=== PATIENT | male | born 1975 | race Caucasian/White ===

== ENCOUNTER 2017-09-08 12:59 | Emergency (ER) | payer MEDICAID, OTHER ==
[2017-09-08] MEDS ORDERED: ACETAMINOPHEN 325 MG TAB PO ONE (13:11)
--- NOTE | 2017-09-08 13:21 | Emergency Department Record ---
History of Present Illness - General Chief Complaint: Cough Stated Complaint: CHEST COLD AND PRODUCTIVE COUGH Time Seen by Provider: 09/08/17 13:07 Source: Patient Mode of Arrival: Ambulatory Limitations: No limitations - History of Present Illness Initial Comments: The patient is here due to a 7 day hx of cough and congestion for 7 days. He now has colored sputum for a few days and is intermittently coughing up flecks of blood in it. The patient does complain of mild fever and chills but denies any CP or SOB. MD Complaint: Cough, Fever, Nasal congestion, Rhinorrhea Onset/Timin -: Days(s) Severity: Moderate Severity scale (1-10): 5 - Related Data Home Medications Medication Instructions Recorded Confirmed Last Taken Fenofibrate Nanocrystallized 160 mg PO DAILY 09/08/17 09/08/17 1 Day Ago [Triglide] ~09/07/17 Multivitamin [Multiple Vitamins] 1 each PO DAILY 09/08/17 09/08/17 1 Day Ago ~09/07/17 Venlafaxine HCl [Effexor Xr] 75 mg PO DAILY 09/08/17 09/08/17 1 Day Ago ~09/07/17 Previous Rx's Medication Instructions Recorded Albuterol Sulfate [Proair Hfa] 2 puff IH QID PRN #1 inhaler 09/08/17 Azithromycin [Zithromax] 250 mg PO ASDIR #4 tab 09/08/17 Allergies Allergy/AdvReac Type Severity Reaction Status Date / Time Fish Containing Products Allergy DIFFICULTY Verified 09/08/17 13:09 SWALLOWING Travel Screening - Travel/Exposure Within Last 30 Days Have you traveled within the last 30 days?: No - Travel/Exposure Within Last Year Have you traveled outside the [place] in the last year?: No - Additonal Travel Details Have you been exposed to anyone with a communicable illness?: No - Travel Symptoms Symptom Screening: None Review of Systems Constitutional: Reports: Chills, Fever, Malaise Eyes: Denies: Eye discharge ENT: Reports: Congestion Respiratory: Reports: Cough. Denies: Dyspnea Past Medical History - SOCIAL HISTORY Smoking Status: Former smoker Alcohol Use: Occasional Drug Use: None - RESPIRATORY Hx Respiratory Disorders: Yes Comment:: allergies - CARDIOVASCULAR Hx Cardio Disorders: No - NEURO Hx Neuro Disorders: No - GI Hx GI Disorders: Yes Hx Ulcer: Yes - Hx Genitourinary Disorders: No - ENDOCRINE Hx Endocrine Disorders: No - MUSCULOSKELETAL Hx Musculoskeletal Disorders: No - PSYCH Hx Psych Problems: No - HEMATOLOGY/ONCOLOGY Hx Hematology/Oncology Disorders: No Family Medical History Any Significant Family History?: Yes Physical Exam - General General Appearance: Alert, Oriented x3, Cooperative, No acute distress - Head Head exam: Atraumatic, Normocephalic, Normal inspection - Eye Eye exam: Normal appearance, PERRL - ENT Throat exam: Normal inspection. negative: Tonsillar erythema, Tonsillar exudate - Neck Neck exam: Normal inspection, Full ROM. negative: Tenderness - Respiratory Respiratory exam: Normal lung sounds bilaterally. negative: Respiratory distress, Rhonchi, Stridor, Wheezes - Cardiovascular Cardiovascular Exam: Regular rate, Normal rhythm, Normal heart sounds - GI/Abdominal GI/Abdominal exam: Soft, Normal bowel sounds. negative: Tenderness - Extremities Extremities exam: Normal inspection, Full ROM, Normal capillary refill. negative: Tenderness - Neurological Neurological exam: Alert. negative: Motor sensory deficit Course Vital Signs 09/08/17 13:02 Temperature 99.9 F H Pulse Rate 102 H Respiratory 18 Rate Blood Pressure 147/88 Pulse Ox 94 L - Reevaluation(s) Reevaluation #1: The patient is doing well and denies any SOB or CP or fever. On exam his lungs are clear with no rhonchi or wheezing. I did discuss the xray results with the patient and the need for oral Abx's. He is to see his PCP next week for recheck. 09/08/17 14:36 Medical Decision Making - Data Complexity MDM Data: X-Ray Ordered and/or Reviewed - Radiology Data Radiology results: Report reviewed (CXR: Bilateral mild infiltrates in the lower lobes. Poss pneumonia.) Disposition Disposition: Discharge Clinical Impression: Pneumonia Qualifiers: Pneumonia type: due to unspecified organism Laterality: bilateral Lung location : unspecified part of lung Qualified Code(s): J18.9 - Pneumonia, unspecified organism Disposition: Home, Self-Care Condition: (2) Stable Instructions: Community Acquired Pneumonia (ED) Additional Instructions: Please use Tylenol or Ibuprofen for fever. Continue the Zithromax as directed and use your ProAir as directed. Please see your PCP next week for recheck and return to the ER for any worsening cough, any fever, or any trouble breathing. Prescriptions: Albuterol Sulfate [Proair Hfa] 2 puff IH QID PRN #1 inhaler PRN Reason: Cough And Difficulty Breathing Azithromycin [Zithromax] 250 mg PO ASDIR #4 tab Forms: Patient Portal Access Time of Disposition: 14:40 Quality - Quality Measures Quality Measures: N/A - Blood Pressure Screening View Details: Yes Does Patient Have Any of the Following: No Blood Pressure Classification: Pre-Hypertensive BP Reading Systolic Measurement: 147 Diastolic Measurement: 88 Screening for High Blood Pressure: < Pre-Hypertensive BP, F/U Documented > [ G8950] Pre-Hypertensive Follow-up Interventions: Referral to alternative/primary care provider.
[2017-09-08] MEDS ORDERED: IPRATROPIUM/ALBUTEROL (0.5MG/3MG) NEB INH ONE (13:47)
[2017-09-08] MEDS ORDERED: AZITHROMYCIN 500 MG TABLET PO ONE (13:48)
--- NOTE | 2017-09-09 18:14 | RADIOLOGY REPORT ---
EXAM: CHEST 2 VIEWS HISTORY: COUGHING UP PHLEGM. CONGESTION FOR FOUR TO FIVE DAYS. TECHNIQUE: Two views. COMPARISON: None. FINDINGS: Infiltrates are seen in the right middle lobe and lingula. The heart is not enlarged and there is no mediastinal mass. No vascular congestion. IMPRESSION: INFILTRATES IDENTIFIED IN THE LOWER LUNGS BILATERALLY. JOB NUMBER: [id number] MTDD
== END 2017-09-08 14:46 | disposition home or self-care (01) ==
LOC: ER 12:59
DX: J18.9 Pneumonia, unspecified organism (principal); Z87.891 Personal history of nicotine dependence
CPT/HCPCS: 71020; 94640; 99283; 99284

== ENCOUNTER 2017-09-30 18:31 | Emergency (ER) | payer MEDICAID ==
[2017-09-30] MEDS ORDERED: METHYLPREDNISOLONE PF 125MG/VIAL IM ONE (20:25)
--- NOTE | 2017-09-30 20:27 | Emergency Department Record ---
History of Present Illness - General Chief Complaint: Cough Stated Complaint: SINUS CONGESTION,COUGH Time Seen by Provider: 09/30/17 20:23 Source: Patient Mode of Arrival: Ambulatory - History of Present Illness Initial Comments: Coughing spasms, green nasal drainage, and sore throat for the past 3-4 days. No known fevers. Had pneumonia in the past, several years ago. No asthma, not a smoker. Son was sick with a viral infection this past week. MD Complaint: Cough, Nasal congestion Onset/Timin -: Days(s) Severity: Mild Severity scale (1-10): 5 Consistency: Constant - Related Data Previous Rx's Medication Instructions Recorded Albuterol Sulfate [Proair Hfa] 2 puff IH QID PRN #1 inhaler 09/08/17 Allergies Allergy/AdvReac Type Severity Reaction Status Date / Time Fish Containing Products Allergy DIFFICULTY Verified 09/30/17 20:04 SWALLOWING Travel Screening - Travel/Exposure Within Last 30 Days Have you traveled within the last 30 days?: No - Travel/Exposure Within Last Year Have you traveled outside the [place] in the last year?: No - Additonal Travel Details Have you been exposed to anyone with a communicable illness?: No - Travel Symptoms Symptom Screening: None Review of Systems Reviewed: No additional complaints except as noted below Constitutional: Reports: As per HPI. Denies: Chills, Fever, Malaise, Night sweats, Weakness, Weight change Eyes: Reports: As per HPI. Denies: Eye discharge, Eye pain, Photophobia, Vision change ENT: Reports: As per HPI. Denies: Congestion, Dental pain, Ear pain, Epistaxis , Hearing loss, Throat pain Respiratory: Reports: As per HPI. Denies: Cough, Dyspnea, Hemoptysis, Stridor, Wheezes Cardiovascular: Reports: As per HPI. Denies: Arrhythmia, Chest pain, Dyspnea on exertion, Edema, Murmurs, Orthopnea, Palpitations, Paroxysmal nocturnal dyspnea, Rheumatic Fever, Syncope Endocrine: Reports: As per HPI. Denies: Fatigue, Heat or cold intolerance, Polydipsia, Polyuria Gastrointestinal: Reports: As per HPI. Denies: Abdominal pain, Constipation, Diarrhea, Hematemesis, Hematochezia, Melena, Nausea, Vomiting Genitourinary: Reports: As per HPI. Denies: Dysuria, Frequency, Hematuria, Incontinence, Retention, Testicular pain, Testicular mass, Urgency Musculoskeletal: Reports: As per HPI. Denies: Arthralgia, Back pain, Gout, Joint swelling, Myalgia, Neck pain Skin: Reports: As per HPI. Denies: Bruising, Change in color, Change in hair/ nails, Lesions, Pruritus, Rash Neurological: Reports: As per HPI. Denies: Abnormal gait, Confusion, Headache, Numbness, Paresthesias, Seizure, Tingling, Tremors, Vertigo, Weakness Psychiatric: Reports: As per HPI. Denies: Anxiety, Auditory hallucinations, Depression, Homicidal thoughts, Suicidal thoughts, Visual hallucinations Hematological/Lymphatic: Reports: As per HPI. Denies: Anemia, Blood Clots, Easy bleeding, Easy bruising, Swollen glands Past Medical History - SOCIAL HISTORY Smoking Status: Former smoker Alcohol Use: None Drug Use: None - RESPIRATORY Hx Respiratory Disorders: Yes Comment:: allergies - CARDIOVASCULAR Hx Cardio Disorders: No - NEURO Hx Neuro Disorders: No - GI Hx GI Disorders: Yes Hx Ulcer: Yes - Hx Genitourinary Disorders: No - ENDOCRINE Hx Endocrine Disorders: No - MUSCULOSKELETAL Hx Musculoskeletal Disorders: No - PSYCH Hx Psych Problems: No - HEMATOLOGY/ONCOLOGY Hx Hematology/Oncology Disorders: No Family Medical History Any Significant Family History?: No Physical Exam - General General Appearance: Alert, Oriented x3, Cooperative, No acute distress - Head Head exam: Normal inspection - Eye Eye exam: Normal appearance, PERRL, EOMI. negative: Conjunctival injection, Nystagmus Pupils: Normal accommodation - ENT ENT exam: Normal exam, Mucous membranes moist, Normal external ear exam, Normal orophraynx, TM's normal bilaterally Ear exam: Normal external inspection. negative: External canal tenderness Nasal Exam: Normal inspection. negative: Discharge, Sinus tenderness Mouth exam: Normal external inspection, Tongue normal Teeth exam: Normal inspection. negative: Dental caries Throat exam: Normal inspection, Tonsillar erythema (beefy red, no exudates). negative: Tonsillar exudate - Neck Neck exam: Normal inspection, Full ROM. negative: Lymphadenopathy, Meningismus , Tenderness - Respiratory Respiratory exam: Normal lung sounds bilaterally (couging spasms with deep inspiration). negative: Respiratory distress - Cardiovascular Cardiovascular Exam: Regular rate, Normal rhythm, Normal heart sounds - GI/Abdominal GI/Abdominal exam: Soft, Normal bowel sounds. negative: Tenderness - Rectal Rectal exam: Deferred - exam: Deferred - Extremities Extremities exam: Normal inspection, Full ROM, Normal capillary refill. negative: Tenderness - Back Back exam: Reports: Normal inspection, Full ROM. Denies: Muscle spasm, Rash noted, Tenderness - Neurological Neurological exam: Alert, CN II-XII intact, Normal gait, Oriented X3, Reflexes normal. negative: Motor sensory deficit - Psychiatric Psychiatric exam: Normal affect, Normal mood - Skin Skin exam: Dry, Intact, Normal color, Warm Course Vital Signs 09/30/17 20:03 Temperature 97.8 F Pulse Rate 63 Respiratory 22 Rate Blood Pressure 136/86 Pulse Ox 98 Medical Decision Making - Management Options MDM Management: No Additional Work-up Planned - Data Complexity MDM Data: Labs Ordered and/or Reviewed (Strep Negative; Influenza A and B negative.) Disposition Disposition: Discharge Clinical Impression: Viral bronchitis Disposition: Home, Self-Care Condition: (1) Good Instructions: Cold Symptoms (ED), Acute Bronchitis (ED) Additional Instructions: Follow up with {CP as needed. tylenol or ibuprofen as directed as needed for pain. Beadryl liquids gargle and swallow at bedtimes 50 mg. to help with sleep, and cough suppressant as needed. Throat lozenges, sprays as needed during the daytime/ Push fluids. Forms: Patient Portal Access Quality - Quality Measures Quality Measures: N/A - Blood Pressure Screening Does Patient Have Any of the Following: No Blood Pressure Classification: Pre-Hypertensive BP Reading Systolic Measurement: 136 Diastolic Measurement: 86 Screening for High Blood Pressure: < Pre-Hypertensive BP, F/U Documented > [ G8950] Pre-Hypertensive Follow-up Interventions: Follow-up with rescreen every year.
[2017-09-30 20:37] LABS: STREP A SCREEN NEGATIVE (NEGATIVE)
[2017-09-30 20:44] LABS: INFLUENZA A NEGATIVE (NEGATIVE); INFLUENZA B NEGATIVE (NEGATIVE)
== END 2017-09-30 21:10 | disposition home or self-care (01) ==
LOC: ER 18:31
DX: J20.8 Acute bronchitis due to other specified organisms (principal); Z87.891 Personal history of nicotine dependence
CPT/HCPCS: 87400; 87880; 96372; 99283; J2930

== ENCOUNTER 2018-10-03 02:11 | Emergency (ER) | payer MEDICAID ==
--- NOTE | 2018-10-03 02:37 | Emergency Department Record ---
History of Present Illness - General Chief complaint: ENT Stated complaint: SORE THROAT Time Seen by Provider: 10/03/18 02:27 Source: Patient Mode of Arrival: Ambulatory Limitations: No limitations - History of Present Illness Initial comments: pt has been dealing with cold like symptoms for a month and now has a sore throat and green yellow rhinitis. MD complaint: Ear pain, Sore throat Onset/Timin -: Minutes(s) Location: Throat Severity scale (1-10): 9 Quality: Aching Consistency: Constant Worsens with: Swallowing Associated Symptoms: Rhinorrhea, Sore throat - Related Data Previous Rx's Medication Instructions Recorded Azithromycin [Zithromax] 250 mg PO DAILY #4 tab 10/03/18 Allergies Allergy/AdvReac Type Severity Reaction Status Date / Time Fish Containing Products Allergy DIFFICULTY Verified 10/03/18 02:13 SWALLOWING Travel Screening - Travel/Exposure Within Last 30 Days Have you traveled within the last 30 days?: No - Travel Symptoms Symptom Screening: None Review of Systems Reviewed: No additional complaints except as noted below Constitutional: Reports: As per HPI. Denies: Chills, Fever, Malaise, Night sweats, Weakness, Weight change Eyes: Reports: As per HPI. Denies: Eye discharge, Eye pain, Photophobia, Vision change ENT: Reports: As per HPI, Congestion, Ear pain, Throat pain. Denies: Dental pain, Epistaxis, Hearing loss Respiratory: Reports: As per HPI. Denies: Cough, Dyspnea, Hemoptysis, Stridor, Wheezes Cardiovascular: Reports: As per HPI. Denies: Arrhythmia, Chest pain, Dyspnea on exertion, Edema, Murmurs, Orthopnea, Palpitations, Paroxysmal nocturnal dyspnea, Rheumatic Fever, Syncope Endocrine: Reports: As per HPI. Denies: Fatigue, Heat or cold intolerance, Polydipsia, Polyuria Gastrointestinal: Reports: As per HPI. Denies: Abdominal pain, Constipation, Diarrhea, Hematemesis, Hematochezia, Melena, Nausea, Vomiting Genitourinary: Reports: As per HPI. Denies: Dysuria, Frequency, Hematuria, Incontinence, Retention, Testicular pain, Testicular mass, Urgency Musculoskeletal: Reports: As per HPI. Denies: Arthralgia, Back pain, Gout, Joint swelling, Myalgia, Neck pain Skin: Reports: As per HPI. Denies: Bruising, Change in color, Change in hair/ nails, Lesions, Pruritus, Rash Neurological: Reports: As per HPI. Denies: Abnormal gait, Confusion, Headache, Numbness, Paresthesias, Seizure, Tingling, Tremors, Vertigo, Weakness Psychiatric: Reports: As per HPI. Denies: Anxiety, Auditory hallucinations, Depression, Homicidal thoughts, Suicidal thoughts, Visual hallucinations Hematological/Lymphatic: Reports: As per HPI. Denies: Anemia, Blood Clots, Easy bleeding, Easy bruising, Swollen glands Past Medical History - SOCIAL HISTORY Smoking Status: Former smoker - RESPIRATORY Hx Respiratory Disorders: Yes Comment:: seasonal allergies - CARDIOVASCULAR Hx Cardio Disorders: No - NEURO Hx Neuro Disorders: No - GI Hx GI Disorders: Yes Hx Ulcer: Yes - Hx Genitourinary Disorders: No - ENDOCRINE Hx Endocrine Disorders: No - MUSCULOSKELETAL Hx Musculoskeletal Disorders: No - PSYCH Hx Psych Problems: No - HEMATOLOGY/ONCOLOGY Hx Hematology/Oncology Disorders: No Family Medical History Any Significant Family History?: Yes Hx Cancer: Grandparents Hx Diabetes: Grandparents Hx HTN: Father Physical Exam - General General Appearance: Alert, Oriented x3, Cooperative, Mild distress - Head Head exam: Normal inspection - Eye Eye exam: Normal appearance, PERRL, EOMI Pupils: Normal accommodation - ENT ENT exam: Normal exam, Mucous membranes moist, Normal external ear exam, Normal orophraynx, TM's normal bilaterally, Other (tms have slight erythema) Ear exam: Normal external inspection. negative: External canal tenderness Nasal Exam: Normal inspection. negative: Discharge, Sinus tenderness Mouth exam: Normal external inspection, Tongue normal Teeth exam: Normal inspection. negative: Dental caries Throat exam: Tonsillar erythema. negative: Tonsillar exudate - Neck Neck exam: Normal inspection, Full ROM. negative: Tenderness - Respiratory Respiratory exam: Normal lung sounds bilaterally. negative: Respiratory distress - Cardiovascular Cardiovascular Exam: Regular rate, Normal rhythm, Normal heart sounds - GI/Abdominal GI/Abdominal exam: Soft, Normal bowel sounds. negative: Tenderness - Rectal Rectal exam: Deferred - exam: Deferred - Extremities Extremities exam: Normal inspection, Full ROM, Normal capillary refill. negative: Tenderness - Back Back exam: Reports: Normal inspection, Full ROM. Denies: Muscle spasm, Rash noted, Tenderness - Neurological Neurological exam: Alert, CN II-XII intact, Normal gait, Oriented X3 - Psychiatric Psychiatric exam: Normal affect, Normal mood - Skin Skin exam: Dry, Intact, Normal color, Warm Course Vital Signs 10/03/18 02:16 Temperature 98.1 F Pulse Rate 66 Respiratory 16 Rate Blood Pressure 148/88 Pulse Ox 95 Medical Decision Making - Lab Data Lab Results 10/03/18 Range/Units 02:29 Group A Strep Screen Negative (NEGATIVE) Disposition Disposition: Discharge Clinical Impression: Pharyngitis Qualifiers: Pharyngitis/tonsillitis etiology: unspecified etiology Qualified Code(s): J02.9 - Acute pharyngitis, unspecified Sinusitis Qualifiers: Sinusitis location: unspecified location Chronicity: acute Recurrence: non- recurrent Qualified Code(s): J01.90 - Acute sinusitis, unspecified Disposition: Home, Self-Care Condition: (1) Good Instructions: Pharyngitis (ED), Sinusitis (ED) Additional Instructions: follow up with family doctor. return sooner if worse. Prescriptions: Azithromycin [Zithromax] 250 mg PO DAILY #4 tab Forms: Patient Portal Access, Return to Work/School Quality - Quality Measures Quality Measures: Adult Sinusitis (>18yr) - Adult Sinusitis: Abx Overuse Quality Measure: Measure #331: Adult Sinusitis Abx Overuse Onset of symptoms over 10 days: Yes Presumed Bacterial: Yes Antibiotic Prescribed: Yes Adult Sinusitis: Antibiotic Within 10 Days of Symptoms: <Antibiotic NOT Prescribed Within 10 Days> [G9287] Reason for Prescription: Presumed Bacterial - Adult Sinusitis: Bacterial w/Abx Quality Measure: Measure #332: Adult Bacterial Sinusitis Correct Abx Use Adult Sinusitis: Appropriate Antibiotic: Exclusion, Not Bacterial - Adult Sinusitis: CT Use Quality Measure: Measure #333: Adult Sinusitis Adult Sinusitis: CT for Acute Sinusitis: < CT NOT ordered or received within 28 Days > [G9350] - Blood Pressure Screening Does Patient Have Any of the Following: No Blood Pressure Classification: Pre-Hypertensive BP Reading Systolic Measurement: 148 Diastolic Measurement: 88 Screening for High Blood Pressure: < Pre-Hypertensive BP, F/U Documented > [ G8950] Pre-Hypertensive Follow-up Interventions: Follow-up with rescreen every year.
[2018-10-03] MEDS: AZITHROMYCIN 500 MG TABLET PO ONE (02:44)
== END 2018-10-03 02:43 | disposition home or self-care (01) ==
LOC: ER 02:11
DX: J02.9 Acute pharyngitis, unspecified (principal); J01.90 Acute sinusitis, unspecified; Z87.891 Personal history of nicotine dependence
CPT/HCPCS: 87880; 99282